=== PATIENT | female | born 1960 | race Caucasian/White ===

== ENCOUNTER 2018-08-20 18:44 | Emergency (ER) | payer OTHER ==
[~2018-08-20] VITALS: Wt 89.9 kg
[2018-08-20] MEDS ORDERED: IBUPROFEN 800 MG TAB PO ONE (19:30)
[2018-08-20] MEDS ORDERED: HYDROCODONE/APAP (5/325) TAB PO ONE (19:30)
--- NOTE | 2018-08-20 20:37 | ERD ---
ER Documentation Chief Complaint Chief Complaint max ra from street for mechanical fall, cc: left knee pain HPI This is a 57-year-old female who was walking across the street in a crosswalk when she tripped on 1 to be reflected lights that are glued to the street falling down onto her left knee. She hit her head but does not have a headache. She says she does not remember how she got to the other side of the street but when she became more cognizant she was laying on the sidewalk with bystanders helping her. She was not syncope. She denies any headache neck pain numbness weakness no pain in the back pelvis chest arms. Pain in the left knee is sharp is worse with movement better with rest. ROS All systems reviewed and are negative except as per history of present illness. Allergies Allergies: Coded Allergies: No Known Allergy (Unverified , 08/20/18) PMhx/Soc Medical and Surgical Hx: pt denies Medical Hx, pt denies Surgical Hx Hx Alcohol Use: No Hx Substance Use: No Hx Tobacco Use: No Smoking Status: Never smoker FmHx Family History: No coronary disease Physical Exam Vitals Vital Signs Date Temp Pulse Resp B/P (MAP) Pulse Ox O2 O2 Flow FiO2 Time Delivery Rate 08/20/18 109 19 164/74 100 Room Air 19:35 (104) 08/20/18 98.1 72 19 181/82 100 18:49 (115) Physical Exam Const: Well-developed, well-nourished Head: Atraumatic, normocephalic Eyes: Normal Conjunctiva, PERRLA, EOMI, normal sclera, no nystagmus ENT: Normal External Ears, Nose and Mouth, moist mucus membranes. Neck: Full range of motion. No meningismus, no lymphadenopathy. Resp: Clear to auscultation bilaterally, no wheezing, rhonchi, rales Cardio: Regular rate and rhythm, no murmurs, S1 S2 present Abd: Soft, non tender x 4, non distended. Normal bowel sounds, no guarding or rebound, no pulsitile abdominal masses or bruits Skin: No petechiae or rashes, no ecchymosis , no maculopapular rash Back: No midline or flank tenderness Ext: No cyanosis, or edema, FROM x 4, left knee has a abrasion to the infrapatellar region there is full range of motion with some pain that is minimal, normal inspection, neurovascularly intact x 4 Neur: Awake and alert, STR 5/5 x 4, sensation intact x 4, no focal findings, cerebellum intact Psych: Normal Mood and Affect Results 24 hrs Current Medications Medications Dose Sig/Laura Start Time Status Last (Trade) Ordered Route PRN Stop Time Admin Dose Reason Admin 1 tab ONCE ONCE 08/20/18 DC 08/20/18 Acetaminophen PO 19:30 19:32 / 08/20/18 19:31 Hydrocodone Bitart ([place] (5/325)) Ibuprofen 800 mg ONCE ONCE 08/20/18 DC 08/20/18 (Motrin) PO 19:30 19:32 08/20/18 19:31 Procedures/MDM MR #: [id number] DOS: 08/20/181921 Ordering MD: CHELSI BALDERAS DO Location: E/R Room/Bed: PROCEDURE: CT Brain without contrast. CLINICAL INDICATION: Trauma TECHNIQUE: A CT of the brain was performed on a multidetector CT scanner utilizing axial imaging from the skull base through the vertex without IV contrast. Multiplanar reformatted images were made. Images were reviewed on a PACS workstation. The CTDIvol is 38 mGy and the DLP is it 634 mGycm. DICOM images are available. One or more of the following dose reduction techniques were utilized: 1.) Automated exposure control 2.) Adjustment of the mA +/- kV according to patient's size 3.) Use of iterative reconstruction technique. COMPARISON: None FINDINGS: There is no intracranial hemorrhage, mass effect, or midline shift. No extra- axial fluid collection is seen. The ventricles and sulci are normal in size and configuration. The density of the brain is normal, and the sandhu white matter differentiation appears well-preserved. The visualized paranasal sinuses and osseous structures are grossly unremarkable. There is no scalp hematoma . IMPRESSION: Normal head CT. No intracranial hemorrhage or skull fracture. .Dennis Ramirez MD, MD Date Time Electronically viewed and signed by .Dennis Ramirez MD, MD on 08/20/2018 20:12 .A/ CC: CHELSI BALDERAS DO [phone] MR #: [id number] DOS: 08/20/18 0000 Ordering MD: CHRIS STEEL MD Location: E/R Room/Bed: PROCEDURE: XR Knee. CLINICAL INDICATION: pain after fall TECHNIQUE: Three views of the left knee are available for review. COMPARISON: None available FINDINGS: Bones are mildly osteopenic. No evidence of acute displaced fracture. Normal alignment of the femorotibial and patellofemoral joints without subluxation. There is mild sharpening of the tibial spines. Mild marginal osteophytosis identified in the medial compartment. There is mild joint effusion. There is spurring of the superior pole patella. No radiopaque or metallic foreign body identified. Unremarkable appearance of the overlying soft tissues. IMPRESSION: No evidence of acute displaced fracture or malalignment of the left knee joint. Degenerative joint disease including spurring of the tibial spines, mild marginal osteophytes of the medial compartment and spurring of the patella. Mild joint effusion. RPTAT: EE Physician Yao Paez Date Time Electronically viewed and signed by Pepe Lai Physician [employer] Fre[employer] Clerk on 08/20/2018 19:31 rP/ CC: CHRIS TSEEL MD [id number] This patient has no injury in the brain or knee. She has a knee contusi on/sprain. She may have hit her head and had a brief amnestic event but but she has no headache or focal neurological complaints I will give her head precautions and have her return if any worse Departure Diagnosis: Primary Impression: Head injury Encounter type: initial encounter Qualified Codes: S09.90XA - Unspecified injury of head, initial encounter Additional Impression: Left knee sprain Encounter type: initial encounter Involved ligament of knee: unspecified ligament Qualified Codes: S83.92XA - Sprain of unspecified site of left knee, initial encounter Condition: Stable CHELSI BALDERAS DO Aug 20, 2018 20:36
[2018-08-20] MEDS ORDERED: HYDR-4011 PO (20:39)
[2018-08-20] MEDS ORDERED: IBUP-1542 PO (20:39)
[2018-08-20 21:17] VITALS: BP 149/82; PULSE 99; RESP 19
== END 2018-08-20 21:19 | disposition home or self-care (01) ==
LOC: E/R 18:44
DX: S09.90XA Unspecified injury of head, initial encounter (principal); S83.92XA Sprain of unspecified site of left knee, initial encounter; R93.0 Abnormal findings on diagnostic imaging of skull and head, not elsewhere classified; W01.0XXA Fall on same level from slipping, tripping and stumbling without subsequent striking against object, initial encounter; Y92.410 Unspecified street and highway as the place of occurrence of the external cause
CPT/HCPCS: 29505; 70450; 73562; Z7502; Z7610